=== PATIENT | female | born 1970 | race African-American/Black ===

== ENCOUNTER 2018-08-10 16:17 | Emergency (ER) | payer MEDICAID ==
[~2018-08-10] VITALS: Ht 154.9 cm; Wt 61.0 kg
[~2018-08-10 16:17] MED LIST: VIC
[2018-08-10] MEDS ORDERED: ACETAMINOPHEN 325MG TABLET PO ONE (17:15)
[2018-08-10 19:02] VITALS: BP 180/85
== END 2018-08-10 19:04 | disposition home or self-care (01) ==
LOC: ER 18:00
DX: M75.31 Calcific tendinitis of right shoulder (principal); F17.200 Nicotine dependence, unspecified, uncomplicated; Z98.890 Other specified postprocedural states; Z88.6 Allergy status to analgesic agent
CPT/HCPCS: 73030; 99284

== ENCOUNTER 2019-07-31 14:53 | Emergency (ER) | payer MEDICAID ==
[~2019-07-31] VITALS: Ht 160 cm; Wt 51.0 kg
[2019-07-31 14:57] VITALS: BP 135/72
[2019-07-31] MEDS ORDERED: ACETAMINOPHEN 500MG TABLET PO NR (19:45)
== END 2019-07-31 20:44 | disposition home or self-care (01) ==
LOC: ER 15:05
DX: S62.92XA Unspecified fracture of left hand, initial encounter for closed fracture (principal); X58.XXXA Exposure to other specified factors, initial encounter; Y93.89 Activity, other specified; Y92.89 Other specified places as the place of occurrence of the external cause; Y99.8 Other external cause status; J45.909 Unspecified asthma, uncomplicated; F20.9 Schizophrenia, unspecified; Z98.890 Other specified postprocedural states; Z88.6 Allergy status to analgesic agent
CPT/HCPCS: 29125; 73130; 99283